=== PATIENT | male | born 1970 | race Caucasian/White ===

== ENCOUNTER 2020-06-23 22:38 | Emergency (ER) | payer OTHER ==
[2020-06-23 22:49] VITALS: BP 156/87
--- NOTE | 2020-06-23 23:33 | ER Document Report ---
ED Skin Rash/Insect Bite/Abscs - General Chief Complaint: Rash Stated Complaint: RASH/ITCHING TO LEGS AND LOWER BACK AREA Time Seen by Provider: 06/23/20 23:19 Primary Care Provider: [facility] [Provider Group] - Follow up as needed [facility] [Provider Group] - Follow up as needed WILL WEINSTEIN DO [ACTIVE STAFF] - Follow up as needed Mode of Arrival: Ambulatory Information source: Patient Notes: 49-year-old male presented to ED for complaint of itching to both legs both sides and buttocks times a month. He states is been going ongoing and his has similar symptoms. They have not been to any doctor. They just moved to [place]. States they stated no hotel for a while and they felt he might have the scabies or bedbugs. Patient stated that they cleaned the hotel so it was film cleaner than it ever been. They do have a dog but the rash does not look like flea bites. It does not look state like scabies but patient insisted that he felt that he had a scabies. REVIEW OF SYSTEMS: CONSTITUTIONAL : Denies fever, chills, or sweats. Denies recent illness. SKIN: Nonspecific skin rash to both legs and buttocks. They do not look like scabies but patient insists they are scabies. ALL OTHER SYSTEMS REVIEWED AND NEGATIVE. VITAL SIGNS: Within normal limits. CHEST: Clear breath sounds bilaterally. No wheezes, rales, or rhonchi. SKIN: Nondescript rash to both lateral legs and buttocks. There is no rash between the fingers or toes. He the rash has been scratched and some do have scabs on them. - HPI Onset: Other Onset/Duration: Gradual - Month, Persistent Quality of pain: No pain Severity: None Pain Level: Denies Skin Character: Rash Quality of rash: Itchy Identify cause: No Exacerbated by: Denies Relieved by: Denies Similar symptoms previously: Yes Recently seen / treated by doctor: No - Related Data Allergies/Adverse Reactions: No Known Allergies Allergy (Unverified 06/23/20 23:19) Past Medical History - General Information source: Patient - Social History Smoking Status: Never Smoker Frequency of alcohol use: None Drug Abuse: None Occupation: [employer] Lives with: Family Family History: Reviewed & Not Pertinent Patient has homicidal ideation: No - Past Medical History Cardiac Medical History: Reports: Hx Hypercholesterolemia Pulmonary Medical History: Reports: None EENT Medical History: Reports: None Neurological Medical History: Reports: None Endocrine Medical History: Reports: None Renal/ Medical History: Reports: None Malignancy Medical History: Reports None GI Medical History: Reports: Hx Gastroesophageal Reflux Disease Musculoskeletal Medical History: Reports None Skin Medical History: Reports None Psychiatric Medical History: Reports: None Traumatic Medical History: Reports: None Infectious Medical History: Reports: None Past Surgical History: Reports: Hx Appendectomy, Other - 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 I did tell him that the prescription for scabies would not hurt him it could help with his itching but if it did not help that he should follow-up with dermatology. Patient was agreeable with this plan and he was discharged home - Vital Signs Vital signs: Temp Pulse Resp BP Pulse Ox 98.1 F 84 17 156/87 H 100 06/23/20 23:24 06/23/20 22:47 06/23/20 22:47 06/23/20 22:47 06/23/20 22:47 Discharge - Discharge Clinical Impression: Rash and nonspecific skin eruption Condition: Stable Disposition: HOME, SELF-CARE Additional Instructions: You have a rash to the lower extremities and your buttocks area. I am not able to tell you what is causing the rash but since your concern is that it is scabies I will give you the instructions on scabies and the permethrin which is what to take for the scabies. You will need to have your go to her primary care doctor for her to get a prescription for this medication. If this does not improve your rash I would suggest you go to a graphics manager. Scabies Your exam does not suggests the presence of scabies, which are microscopic parasites of the skin. These mites john through the skin, causing severe itching. The mite can be spread to other persons by skin contact. If you are concerned that it could be scabies I have given you the prescription for the permethrin please follow the instructions that I have given you. You put the permethrin on from the hairline down leave it on for 8 to 12 hours wash it off and then be sure that you clean all clothing towels beddings sulfur chairs anything you have set on. All clothing, towels, and bedding should be washed in very hot water, set aside for a week, then washed again. You should apply scabies-killing lotion from the neck down, then wash it off after 12 hours. You may need medication for itching, as the itch persists for many days after the mites have been killed. All family members and close personal contacts should be examined. Repeat treatment may be necessary if the infestation is not eliminated with a single treatment. Call the doctor if you develop increasing swelling and redness, red streaks, tender lumps, fever, or drainage from a skin sore. You could also try Benadryl lotion, Caladryl lotion, or calamine lotion to help with the rash. Being overheated taking hot showers or getting out in the sun will always make a rash it is more. FOLLOW-UP CARE: If you have been referred to a physician for follow-up care, call the physicians office for an appointment as you were instructed or within the next two days. If you experience worsening or a significant change in your symptoms, notify the physician immediately or return to the Emergency Department at any time for re-evaluation. Prescriptions: Permethrin [Acticin 5% Cream 60 gm] 1 applic TP ONCE PRN #1 tube PRN Reason: Forms: Elevated Blood Pressure Referrals: [facility] [Provider Group] - Follow up as needed [facility] [Provider Group] - Follow up as needed WILL WEINSTEIN DO [ACTIVE STAFF] - Follow up as needed
== END 2020-06-23 23:30 | disposition home or self-care (01) ==
LOC: ER 22:38
DX: R21 Rash and other nonspecific skin eruption (principal); L29.9 Pruritus, unspecified
CPT/HCPCS: 99282